=== PATIENT | female | born 1995 | race African-American/Black ===

== ENCOUNTER 2017-08-20 17:39 | Emergency (ER) | payer BC ==
[2017-08-20] MEDS ORDERED: Ketorolac Tromethamine 60 MG/2 ML VIAL ONE (19:25)
[2017-08-20 19:48] LABS: #Basophils 0.2 thou/uL (0.0-0.2); #Eosinphils 0.1 thou/uL (0.0-0.7); #Lymphocytes 2.4 thou/uL (1.20-3.40); #Monocytes 0.6 thou/uL (0.11-0.59); #Neutrophils 4.1 thou/uL (1.40-6.50); %Basophils 2.8 % (0.0-1.0); %Eosinophils 0.8 % (0.0-10.0); %Lymphocytes 32.4 % (28.0-48.0); %Monocytes 8.1 % (0.0-4.0); Hematocrit 37.2 % (36.0-47.0); Mean Platelet Volume 8.2 fL (7.4-10.4); Red Blood Cell (RBC) Count 3.85 mill/uL (4.00-5.20); White Blood Cell (WBC) Count 7.3 thou/uL (4.8-10.8)
--- NOTE | 2017-08-20 19:56 | RAD ---
PORTABLE AP CHEST X-RAY: 08/20/17 HISTORY: Chest pain. COMPARISON: None available. FINDINGS: The cardiac silhouette and pulmonary vasculature are within normal limits. The lungs are clear. Ther e is mild elevation of the left hemidiaphragm. Osseous structures are intact. IMPRESSION: No acute cardiopulmonary process. POS: H
[2017-08-20 20:16] LABS: ALT (SGPT) 16 U/L (8-55); AST (SGOT) 17 U/L (5-34); Alkaline Phosphatase 61 U/L (40-150); Anion Gap 14 mmol/L (10-20); BUN (Urea Nitrogen) 9 mg/dL (7.0-18.7); Bilirubin, Total 0.4 mg/dL (0.2-1.2); CK (CPK) 63 U/L (29-168); Calc. Creatinine Clearance 0 mL/min (70-130); Calcium 9.9 mg/dL (7.8-10.44); Carbon Dioxide 23 mmol/L (22-29); Chloride 104 mmol/L (98-107); Estimated GFR-MDRD Greater than 90; Globulin 3.7 g/dL (2.4-3.5); Lipase 15 U/L (8-78); Protein, Total 7.8 g/dL (6.0-8.3)
== END 2017-08-20 20:44 | disposition home or self-care (01) ==
LOC: ERS 17:39
DX: R07.89 Other chest pain (principal); E11.9 Type 2 diabetes mellitus without complications
CPT/HCPCS: 36415; 71010; 80053; 82550; 83690; 85025; 85379; 93005; 96372; J1885